=== PATIENT | male | born 1950 | race Asian ===

== ENCOUNTER 2018-06-12 06:56 | Day surgery (SDC) | payer OTHER ==
[2018-06-11 13:09] VITALS: BMI 26.6
[2018-06-12 08:37] VITALS: TEMP 97.8
[2018-06-12 09:42] VITALS: BP 129/82; PULSE 55
--- NOTE | 2018-06-13 15:36 | PATH ---
Surgical Pathology Report Patient Name: DARLENE ANNA [facility]. Rec. #: [id number] /Age/Gender: 1950 (Age: 67) / M Account: [id number] Location: [facility]-ENDOSCOPY Taken: 06/12/2018 Received: 06/12/2018 Reported: 06/13/2018 Physicians: Ludivina Patel M.D. Specimen(s) Received A: BX 2ND PORTION DUODENUM AND BULB B: BX ANTRUM C: BX GE JUNCTION D: BX CECUM E: BX ILEUM Clinical History Heartburn, early satiety, diarrhea, colon screening Postoperative diagnosis: Gastric ulcer, atrophic gastritis, hiatal hernia, GERD, hemorrhoid Final Diagnosis A. SECOND PORTION DUODENUM AND BULB, BIOPSY: DUODENUM MUCOSA WITH CHRONIC DUODENITIS. NO HISTOLOGIC EVIDENCE OF INTRAEPITHELIAL LYMPHOCYTOSIS. B. ANTRUM, BIOPSY: GASTRIC MUCOSA WITH ACTIVE CHRONIC GASTRITIS. IMMUNOSTAIN FOR H. PYLORI IS POSITIVE. POSITIVE FOR INTESTINAL METAPLASIA. C. GE JUNCTION, BIOPSY: GASTROESOPHAGEAL JUNCTIONAL MUCOSA WITH REFLUX ESOPHAGITIS. NEGATIVE FOR INTESTINAL METAPLASIA. D. CECUM, BIOPSY: COLONIC MUCOSA WITH REACTIVE LYMPHOID AGGREGATE. E. ILEUM, BIOPSY: ILEAL MUCOSA WITH NO SIGNIFICANT PATHOLOGIC FINDINGS. Electronically Signed Feli Pepe M.D. Gross Description A. Received in formalin, labeled "biopsy second portion of duodenum and bulb" are 5 jamison, irregular portions of soft tissue ranging from 0.1-0.3 cm. in greatest dimension. The specimens are submitted in toto in one cassette. B. Received in formalin, labeled "biopsy antrum" are 5 jamison, irregular portions of soft tissue ranging from 0.2-0.4 cm. in greatest dimension. The specimens are submitted in toto in one cassette. C. Received in formalin, labeled "GE junction" are 2 jamison, irregular portions of soft tissue averaging 0.4 cm. in greatest dimension. The specimens are submitted in toto in one cassette. D. Received in formalin, labeled "biopsy cecum" are 2 jamison, irregular portions of soft tissue measuring 0.2 and 0.4 cm. in greatest dimension. The specimens are submitted in toto in one cassette. E. Received in formalin, labeled "biopsy ileum" is a jamison, irregular portion of soft tissue measuring 0.4 cm. in greatest dimension. The specimen is submitted in toto in one cassette. 06/12/201806/12/2018
== END 2018-06-12 09:42 | disposition home or self-care (01) ==
LOC: JASU-ENDO 06:56
PROVIDERS: ATTEND Internal Medicine Gastroenterology
PROC: 0DBB8ZX Excision of Ileum, Via Natural or Artificial Opening Endoscopic, Diagnostic (ICD-10-PCS; 2018-06-12)
PROC: 0DB38ZX Excision of Lower Esophagus, Via Natural or Artificial Opening Endoscopic, Diagnostic (ICD-10-PCS; 2018-06-12)
PROC: 0DB68ZX Excision of Stomach, Via Natural or Artificial Opening Endoscopic, Diagnostic (ICD-10-PCS; 2018-06-12)
PROC: 0DBH8ZX Excision of Cecum, Via Natural or Artificial Opening Endoscopic, Diagnostic (ICD-10-PCS; principal; 2018-06-12 08:00)
DX: Z12.11 Encounter for screening for malignant neoplasm of colon (principal); K64.8 Other hemorrhoids; K21.0 Gastro-esophageal reflux disease with esophagitis; K44.9 Diaphragmatic hernia without obstruction or gangrene; K25.9 Gastric ulcer, unspecified as acute or chronic, without hemorrhage or perforation
CPT/HCPCS: 82962; 88305-TC; 88342-TC

== ENCOUNTER → 2018-07-01 | Day surgery (SDC) | payer OTHER ==
--- NOTE | 2018-07-19 11:18 | PATH ---
Cytology Non-Gynecological Report Patient Name: DARLENE ANNA [facility]. Rec. #: [id number] /Age/Gender: 1950 (Age: 67) / M Account: [id number] Location: RADIOLOGY INTER Taken: 07/01/2018 Received: 07/01/2018 Reported: 07/02/2018 Physicians: Sayda Larson M.D. Specimen(s) Received RIGHT THYROID FNA Clinical History Right thyroid nodule, 1.84 x 1.77 x 1.46 cm Final Diagnosis THYROID, RIGHT, FINE NEEDLE ASPIRATION: SATISFACTORY FOR EVALUATION. BETHESDA CLASS II: BENIGN. CYTOLOGIC FINDINGS ARE CONSISTENT WITH A BENIGN FOLLICULAR NODULE WITH CYSTIC CHANGE. FOLLICULAR CELLS WITH FOCAL REACTIVE CHANGES IN A BACKGROUND OF ABUNDANT COLLOID AND MACROPHAGES. Electronically Signed Nancy Nelson M.D. Gross Description Received are eight direct smears, four of which are air-dried and Diff-Quik stained, and four of which are alcohol fixed and Pap stained. Also received is 20 ml of bloody formalin from which one cellblock is prepared.
== END | disposition home or self-care (01) ==
LOC: JRADIR 08:28
PROVIDERS: ATTEND Internal Medicine Endocrinology, Diabetes & Metabolism
PROC: 0G9H3ZX Drainage of Right Thyroid Gland Lobe, Percutaneous Approach, Diagnostic (ICD-10-PCS; principal; 2018-07-01)
DX: E04.1 Nontoxic single thyroid nodule (principal)
CPT/HCPCS: 76942; 88173; 88305-TC